=== PATIENT | female | born 1945 | race Caucasian/White ===

== ENCOUNTER 2021-10-03 08:55 | Outpatient (RCR) | payer MEDICARE, OTHER ==
[2021-10-02 10:08] VITALS: BP 133/45
[2021-10-02 10:16] LABS: BILIRUBIN,URINE NEGATIVE (NEGATIVE); CLARITY,URINE CLEAR; COLOR,URINE YELLOW; GLUCOSE, URINE (UA) NEGATIVE (NEGATIVE); KETONES,URINE NEGATIVE (NEGATIVE); LEUKOCYTE ESTERASE ,URINE NEGATIVE (NEGATIVE); NITRITE,URINE NEGATIVE (NEGATIVE); PROTEIN,URINE NEGATIVE (NEGATIVE)
[2021-10-02 10:29] LABS: AMORPHOUS SEDIMENT,UR FEW AMOR URATES /LPF; BACTERIA,URINE NEGATIVE /HPF; HYALINE CASTS, URINE RARE /LPF; RBC,URINE 0-2 /HPF; RENAL EPITHELIAL CELLS,URINE 0-2 /HPF; SQUAMOUS EPITHELIAL CELL,UR 0-2 /HPF; WBC,URINE 0-2 /HPF
[2021-10-02 11:08] LABS: BASOPHILS % (AUTO) 1 % (0-10); EOSINOPHILS # (AUTO) 0.1 10^3/uL (0.0-0.3); EOSINOPHILS % (AUTO) 3 % (0-10); HEMATOCRIT 38 % (35-52); LYMPHOCYTES # (AUTO) 1.2 10^3/uL (1.0-4.0); LYMPHOCYTES % (AUTO) 29 % (12-44); MEAN CORPUSCULAR HEMOGLOBIN 31 pg (25-34); MEAN CORPUSCULAR HGB CONC 34 g/dL (32-36); MEAN CORPUSCULAR VOLUME 93 fL (80-99); MEAN PLATELET VOLUME 11.6 fL (9.0-12.2); MONOCYTES # (AUTO) 0.4 10^3/uL (0.0-1.0); MONOCYTES % (AUTO) 9 % (0-12); NEUTROPHILS # (AUTO) 2.4 10^3/uL (1.8-7.8); NEUTROPHILS % (AUTO) 58 % (42-75); PLATELET COUNT 222 10^3/uL (130-400); WHITE BLOOD COUNT 4.1 10^3/uL (4.3-11.0)
[2021-10-02 11:14] LABS: PROTHROMBIN TIME PATIENT 13.4 SEC (12.2-14.7)
[2021-10-02 11:16] LABS: ALBUMIN 4.3 GM/DL (3.2-4.5); BILIRUBIN,TOTAL 0.8 MG/DL (0.1-1.0); CALCIUM 9.6 MG/DL (8.5-10.1); CREATININE SERUM 1.08 MG/DL (0.60-1.30); POTASSIUM 3.7 MMOL/L (3.6-5.0); TOTAL PROTEIN 7.2 GM/DL (6.4-8.2)
[2021-10-02 11:46] LABS: ERYTHROCYTE SEDIMENTATION RATE 22 MM/HR (0-30)
[~2021-10-03] VITALS: Ht 154.9 cm; Wt 58.6 kg
--- NOTE | 2021-10-03 11:37 | Diagnostic Imaging Report ---
INDICATION: Preoperative total knee replacement surgery. Time of Exam: 11:13 AM No prior studies are available for comparison. Findings: The heart size is normal. The pulmonary vascularity is unremarkable. The lungs are clear. No infiltrate, effusion or pneumothorax is detected. Impression: No acute cardiopulmonary process is detected. Dictated by: Dictated on workstation # [id number]
== END 2021-10-16 | disposition home or self-care (01) ==
LOC: PREOP 08:55
PROVIDERS: ATTEND Orthopaedic Surgery
DX: Z01.818 Encounter for other preprocedural examination (principal); M17.12 Unilateral primary osteoarthritis, left knee
CPT/HCPCS: 36415; 71046; 80053; 81000; 82308; 85025; 85610; 85652; 86850; 86900; 86901; 87081; 93005

== ENCOUNTER → 2021-10-03 | Outpatient (CLI) | payer MEDICARE, OTHER ==
[~2021-10-03] MED LIST: ASPI81TA16 PO; ATEN50TA PO; CLOR3.755 PO; HYDR12.56 PO; LISI20TA26 PO; PRAV40TA2 PO
== END ==
LOC: RAD 10:56
PROVIDERS: ATTEND Orthopaedic Surgery
DX: M17.12 Unilateral primary osteoarthritis, left knee (principal); R53.83 Other fatigue

== ENCOUNTER 2021-10-08 08:00 | Inpatient (IN) | payer MEDICARE, OTHER ==
--- NOTE | 2021-10-02 07:39 | HISTORY AND PHYSICAL ---
DATE OF SERVICE: This will be for inpatient admission on 10/08/2021 for left total knee arthroplasty. The patient will require regular inpatient admission due to gait abnormalities, need for physical therapy and pain management. HISTORY OF PRESENT ILLNESS: The patient is a 76-year-old female with complaints of progressively worsening left knee pain. She has had longstanding pain. She has undergone treatment with hyaluronic acid injections as well as ____ injections. These, however, have ceased providing relief. She reports activity limitations because of the knee. Due to functional impairment and failure to improve with conservative measures, the patient elected to proceed with surgical intervention. REVIEW OF SYSTEMS: No chest pain, no shortness of breath, no dysuria. PAST MEDICAL HISTORY: Hypertension and vertigo. PAST SURGICAL HISTORY: Appendectomy, right total knee arthroplasty and tubal ligation. FAMILY HISTORY: Significant for thyroid disorder, arthritis, coronary artery disease. PRIMARY CARE PROVIDER: Dr. Vega. MEDICATIONS: Lisinopril, hydrochlorothiazide, pravastatin, aspirin, atenolol. ALLERGIES: NO KNOWN DRUG ALLERGIES. SOCIAL HISTORY: The patient denies alcohol, tobacco use. RADIOGRAPHS: Reveal severe medial and patellofemoral joint space narrowing with complete loss of joint space. In addition, there is an osteochondral defect of the medial femoral condyle with ____ in the medial femoral condyle. PHYSICAL EXAMINATION: GENERAL: The patient is a well-developed, well-nourished, in no acute distress. HEENT: Normocephalic, atraumatic. Pupils are equal, round, reactive lateral. Oropharynx is clear. NECK: Supple, no lymphadenopathy. LUNGS: Clear to auscultation bilaterally. HEART: Regular rate and rhythm. ABDOMEN: Soft, nontender, nondistended. EXTREMITIES: The left lower extremity demonstrates varus alignment. No skin lesions are noted. She has a slight effusion. There is no erythema or warmth. She is tender along her medial femoral condyle. Her active range of motion is well maintained at 0/0/130. There is no varus valgus laxity and negative anterior and posterior drawer. The patient ambulates with an antalgic gait. IMPRESSION: Severe left knee osteoarthritis, unresponsive to conservative measures. PLAN: Left total knee arthroplasty. The risks, benefits, options, ramifications and recovery have been discussed at length with the patient. She understands and wishes to proceed. Job ID: [id number] DocumentID: [id number] Dictated Date: 09/22/2021 16:15:12 Fastener Technologist Date: 09/22/2021 17:39:52 Dictated By: JOSE CALLEJAS MD
[~2021-10-08] VITALS: Ht 155 cm; Wt 58.6 kg
[2021-10-08] VITALS (10 sets, daily range): BP systolic 105–145; BP diastolic 51–68
[~2021-10-08 08:00] MED LIST changes: +NALOXONE 0.4 MG/ML 1 ML (NARCAN) VIAL IV PRN; +diphenhydrAMINE 50 MG/ML INJ (BENADRYL) IVP PRN; +morphine PCA 100 MG/100 ML BAG IV PRN
[2021-10-08] MEDS ORDERED: INTRA-ARTICULAR IU ONE ×5 (08:30)
[2021-10-08] MEDS ORDERED: CEFUROXIME INJECTION 1,500 MG in NS (IVPB) 50 ML IV ONE (08:30)
[2021-10-08] MEDS: LACTATED RINGERS 1,000 ML IV PRN ×2 (08:45→11:11)
[2021-10-08] MEDS ORDERED: MIDAZOLAM 2 MG/2 ML (VERSED) VIAL ONE (08:54)
[2021-10-08] MEDS ORDERED: ONDANSETRON 4 MG/2 ML (SDV) Z0FRAN IVP ONE (09:00)
[2021-10-08] MEDS ORDERED: FAMOTIDINE 20MG/2ML IV (PEPCID) IVP ONE (09:00)
--- NOTE | 2021-10-08 09:11 | Progress Note-Pre Operative ---
Pre-Operative Progress Note H&P Reviewed The H&P was reviewed, patient examined and no changes noted. Date Seen by Provider: Oct 08, 2021 Time Seen by Provider: 09:06 Date H&P Reviewed: Oct 08, 2021 Time H&P Reviewed: 07:11 Pre-Operative Diagnosis: left knee primary osteoarthitis JOSE CALLEJAS MD Oct 08, 2021 09:11
--- NOTE | 2021-10-08 09:12 | Progress Note-Post Operative ---
Post-Operative Progess Note Surgeon (s)/Cook Fish Eggs (s) Surgeon JOSE CALLEJAS MD Cook Fish Eggs: Caesar Celis Pre-Operative Diagnosis left knee primary osteoarthitis Post-Operative Diagnosis left knee primary osteoarthitis Procedure & Operative Findings Date of Procedure 10/08/21 Procedure Performed/Findings left total knee arthroplasty Anesthesia Type GETA Estimated Blood Loss Estimated blood loss (mL): minimal Specimens/Packing Specimens Removed none Packing: none JOSE CALLEJAS MD Oct 08, 2021 09:12
--- NOTE | 2021-10-08 09:14 | D/C HH Face to Face Order ---
D/C Face to Face Orders Reconcile Patient Problems Problems Reviewed?: Yes Instructions for Patient Via Marcie LeadiD, Patient Instructions/FollowUp: three weeks Physician to follow Patient: three weeks Discharge Diet for Home: Regular Diet Patient Data-Allergies,Ht & Wt Patient Allergies: Coded Allergies: pseudoephedrine (Unverified Allergy, Severe, 10/02/21) HEART RACING [facility] Need/Face to Face Date of Face to Face: Oct 08, 2021 Clinical Findings: Muscle weakness, Pain with ambulation, Unsteady gait I have seen Pt [id number]: Yes Discharged To: Home Diagnosis/Conditions: left total knee arthroplasty Patient is Homebound due to: Muscle weakness, Pain w/ambulation Homebound Status Due to the above stated illness, injury or surgical procedure (medical condition or diagnosis) and associated clinical findings, the patient is homebound because of his/her inability to leave home except with aid of a supportive device and/or person AND leaving the home requires a considerable and taxing effort or is medically contraindicated. Pt req the following assistanc: [facility] Nursing Orders Home Health Services Order: Physical Therapy-Evaluate & Treat DC left knee grecia and apply steri strips 10/22/21 Therapy Orders Therapy Orders: Physical Therapy, PT to assess for OT Therapy Specific Orders: Eval assistive deivces, Teach enviro modifications/safety, Gait training, Increase strength/endurance, Provider maintenance therapy, Restore ROM Certify Stmt I certify that this patient is under my care and that I, a nurse practitioner or a physician; a telecom assistant working with me, had a face to face encounter that - meets the physician face to face encounter requirements with this patient as dated. JOSE CALLEJAS MD Oct 08, 2021 09:14
[2021-10-08] MEDS ORDERED: ONDANSETRON 4 MG/2 ML (SDV) Z0FRAN ONE ×2 (09:15→10:13)
[2021-10-08] MEDS ORDERED: FAMOTIDINE 20MG/2ML IV (PEPCID) ONE (09:15)
[2021-10-08] MEDS ORDERED: fentaNYL INJ 100 MCG/2 ML AMP ONE (09:44)
[2021-10-08] MEDS ORDERED: proPOfol 200 MG/20 ML (DIPRIVAN) VIAL IV ONE (10:13)
[2021-10-08] MEDS ORDERED: LIDOCAINE PF 2% 5 ML (XYLOCAINE) VIAL ONE (10:13)
[2021-10-08] MEDS ORDERED: TRANEXAMIC ACID 100 MG/ML 10 ML INJECTION ONE (10:13)
[2021-10-08] MEDS ORDERED: SEVOFLURANE (ULTANE) 15 ML INHAL SOLN ONE (11:15)
[2021-10-08] MEDS ORDERED: ROPIVACAINE 5MG/ML 30ML VIAL ONE (11:19)
[2021-10-08] MEDS ORDERED: morphine INJ 10 MG/ML 1ML (SYR OR VIAL) ONE (11:39)
[2021-10-08] MEDS ORDERED: PROMETHAZINE INJ 25 MG/ML (PHENERGAN) AMP IVP ONE (11:45)
[2021-10-08] MEDS ORDERED: morphine INJ 10 MG/ML 1ML (SYR OR VIAL) IVP ONE (11:45)
[2021-10-08] MEDS ORDERED: HYDROmorphone 2 MG/ML VIAL (DILAUDID) IV ONE (11:45)
[2021-10-08] MEDS ORDERED: ONDANSETRON 4 MG/2 ML (SDV) Z0FRAN IVP PRN (11:45)
--- NOTE | 2021-10-08 12:04 | Progress Note ---
Standard Progress Note Progress Notes/Assess & Plan Date Seen by a Provider: Oct 08, 2021 Time Seen by a Provider: 12:03 Progress/Assessment & Plan post op check no complaints radiographs--HW well positioned without fracture LLE--2 plus DP pulse with brisk cap refill intact DF and PF of toes and ankle sensation intact to light touch throughouot s/p LTKA mobilize as able JOSE CALLEJAS MD Oct 08, 2021 12:04
--- NOTE | 2021-10-08 12:34 | Diagnostic Imaging Report ---
INDICATION: Postop knee replacement. COMPARISON: None. FINDINGS: Two views of the left knee were obtained. Expected postoperative changes are seen from left knee total arthroplasty. Femoral and tibial components appear well-seated. There is no evidence of periprosthetic fracture. No unexpected radiopaque foreign bodies are identified. IMPRESSION: Expected postsurgical changes from left knee total arthroplasty, as described above. No unexpected radiopaque foreign bodies. Dictated by: Dictated on workstation # [id number]
[2021-10-08] MEDS: NS IV 1000 ML 1,000 ML IV SCH ×2 (14:50→22:41)
[2021-10-08] MEDS: SENNA W/DOCUSATE (SENOKOT S) TABLET PO SCH ×3 (15:06→22:33)
[2021-10-08] MEDS: ONDANSETRON 4 MG/2 ML (SDV) Z0FRAN IVP PRN (15:08)
--- NOTE | 2021-10-08 15:48 | Physical Therapy Evaluation ---
PT Evaluation-General Medical Diagnosis Admission Date Oct 08, 2021 at 08:00 Medical Diagnosis: Left TKA Onset Date: Oct 08, 2021 Therapy Diagnosis Therapy Diagnosis: Gait deficit, strength deficit Precautions Precautions/Isolations: Fall Prevention, Standard Precautions Weight Bear Status Right Lower Extremity: Right Full Weight Bearing Left Lower Extremity: Left Weight Bearing/Tolerated Referral Physician: Dr. Abdi Reason for Referral: Evaluation/Treatment Medical History Reviewed History: Yes Social History Home: Multilevel Current Living Status: Spouse Entry Into Home: Level Entry PT Steps Into Home: 0 PT Steps Inside Home: 13 Prior Prior Level of Function SCALE: Activities may be completed with or without assistive devices. 3-Cpipddhfjq-jfjzmzg completes the activity by him/herself with no assistance from a helper. 5-Set-up or Clean-up Assistance-helper sets up or cleans up; patient completes activity. [place] assists only prior to or following the activity. 4-Supervision or Touching Assistance-helper provides verbal cues and/or touching/steadying and/or contact guard assistance as patient completes activity. Assistance may be provided throughout the activity or intermittently. 3-Partial/Moderate Assistance-helper does LESS THAN HALF the effort. [place] lifts, holds or supports trunk or limbs, but provides less than half the effort. 2-Substantial/Maximal Assistance-helper does MORE THAN HALF the effort. [place] lifts or holds trunk or limbs and provides more than half the effort. 5-Ytrmcwvde-ajhtap does ALL the effort. Patient does none of the effort to complete the activity. Or, the assistance of 2 or more helpers is required for the patient to complete the activity. If activity was not attempted, code reason: 7-Patient Refused. 9-Not Applicable-not attempted and the patient did not perform the activity before the current illness, exacerbation or injury. 10-Not Attempted due to Environmental Limitations-(lack of equipment, weather restraints, etc.). 88-Not Attempted due to Medical Conditions or Safety Concerns. Bed Mobility: 6 Transfers (B,C,W/C): 6 Gait: 6 Stairs: 6 Indoor Mobility (Ambulation): Independent Stairs: Independent Prior Devices Use: None PT Evaluation-Current Subjective Patient lying supine in bed upon PT arrival, agreeable to treatment. Patient rates pain at 2/10 currently. Objective Patient Orientation: Person, Place, Time, Situation ROM/Strength ROM Lower Extremities Right LE WFLs all planes; Left knee flexion 95 degrees in sitting, extension lacks 15 degrees in supine Strength Lower Extremities Right LE 4/5 all planes; Left knee flexion 3/5, extension 2/5. Sensory Sensation Right Lower Extremit: Intact Sensation Left Lower Extremity: Intact Transfers Roll Left to Right (QC): 4 Sit to Lying (QC): 4 Lying to Sitting/Side of Bed(Q: 4 Sit to Stand (QC): 2 Chair/Ryx-tg-Xtmbv Xfer(QC): 2 Gait Does the Patient Walk?: Yes Mode of Locomotion: Walk Anticipated Mode of Locomotion: Walk Walk 10 feet (QC): 2 Distance: 3 Gait Assistive Device: FWW Comments/Gait Description Patient unable to bear weight through the left LE during stance phase. Balance Sitting Static: Good Sitting Dynamic: Good Standing Static: Fair Standing Dynamic: Poor Assessment/Needs Patient tolerated treatment fair. Performs all bed mobility with SBA and transfers with max A. Attempts to ambulate with FWW, however patient unable to bear weight through left LE. She ambulates 3 feet with FWW with max A and verbal cues for posture, use of FWW and safety. Patient in chair post treatment with all needs met, nursing notified, call light in reach and friend in the room. Rehab Potential: Good PT Intermediate Goals Intermediate Goals PT Intermediate Goals Time Frame: Oct 16, 2021 Roll Left & Right (QC): 6 Lying-Sitting on Side/Bed(QC): 6 Sit to Stand (QC): 5 Chair/Eby-am-Xaiyc Xfer(QC): 5 Toilet Transfer (QC): 5 Does the Patient Walk: Yes Walk 10 feet (QC): 4 Walk 50ft with 2 Turns (QC): 4 Walk 150 ft (QC): 4 1 Step (curb) (QC): 3 4 Steps (QC): 3 12 Steps (QC): 3 PT Plan Problem List Problem List: Activity Tolerance, Functional Strength, Safety, Balance, Gait, Transfer, Bed Mobility, ROM Treatment/Plan Treatment Plan: Continue Plan of Care Treatment Plan: Bed Mobility, Education, Functional Activity Chidi, Functional Strength, Group Therapy, Gait, Safety, Therapeutic Exercise, Transfers Treatment Duration: Nov 14, 2021 Frequency: 11 times per week Estimated Hrs Per Day: .25 hour per day Patient and/or Family Agrees t: Yes Safety Risks/Education Patient Education: Gait Training, Transfer Techniques Teaching Recipient: Patient Teaching Methods: Demonstration, Discussion Response to Teaching: Verbalize Understanding, Reinforcement Needed Time/GCodes Time In: 1357 Time Out: 1415 Total Billed Treatment Time: 18 Total Billed Treatment Visit, LEXI JURADO PT Oct 08, 2021 15:48
--- NOTE | 2021-10-08 16:01 | Consultation ---
HPI History of Present Illness: 76 yo female admitted after left TKA, feeling okay other than nauseated since anesthesia. Source: patient Date seen by provider: Oct 08, 2021 Time Seen by Provider: 15:57 Attending Physician Jacinto Vega MD PCP Admitting Physician: Aleks Abdi MD Attending Physician: Aleks Abdi MD Consult Date of Admission Oct 08, 2021 at 08:00 Home Medications Home Medications Reviewed patient Home Medication Reconciliation performed by pharmacy medication reconciliations tire and lube technician and/or nursing. Patients Allergies have been reviewed. Allergies Coded Allergies: pseudoephedrine (Unverified Allergy, Severe, 10/02/21) HEART RACING QOK-Hbcfgg-Bmxwxe Hx Patient Social History Smoking Status: Never a Smoker Recent Hopitalizations: No Alcohol Use?: No Immunizations Up To Date First/Initial COVID19 Vaccinat: May 29, 2020 Second COVID19 Vaccination Herbie: June 28, 2020 Third COVID19 Vaccination Date: Feb 18, 2021 Past Medical History PMHx: HTN HLD SurgHx: Appendectomy Tubal ligation Hammer toe Right knee replacement Left knee replacement Family Medical History Significant Family History: Heart Disease, Cancer (brother age 67, colon cancer; sister with multiple types of cancer), Diabetes Review of Systems ([facility]) Constitutional: dizziness (postop) EENTM: No blurred vision Respiratory: No cough Cardiovascular: No chest pain Gastrointestinal: No constipation, No diarrhea; nausea (postop) Genitourinary: No dysuria Musculoskeletal: joint pain Skin: No rash Psychiatric/Neurological: Denies Headache Physical Exam-([facility]) Physical Exam Vital Signs VS - Last 72 Hours, by Label 10/08/21 10/08/21 10/08/21 10/08/21 08:00 11:10 11:10 11:20 Temp 36.4 36.4 Pulse 59 Resp 18 16 12 B/P (MAP) 117/62 (80) 105/51 (69) 139/68 (91) Pulse Ox 99 96 95 O2 Delivery Room Air OxyMask OxyMask OxyMask O2 Flow Rate 7 7 7 10/08/21 10/08/21 10/08/21 10/08/21 11:25 11:30 11:40 11:40 Resp 16 20 B/P (MAP) 130/63 (85) 120/65 (83) Pulse Ox 99 98 O2 Delivery OxyMask OxyMask OxyMask OxyMask O2 Flow Rate 7 7 1 1 10/08/21 10/08/21 10/08/21 10/08/21 11:50 11:50 12:00 12:00 Temp 36.5 Resp 16 10 B/P (MAP) 129/61 (83) 124/66 (85) Pulse Ox 96 99 O2 Delivery Room Air OxyMask Room Air Room Air O2 Flow Rate 1 Capillary Refill : Less Than 3 Seconds General Appearance: WD/WN, no apparent distress Respiratory: lungs clear, normal breath sounds Cardiovascular: regular rate, rhythm, no murmur Gastrointestinal: non tender, soft, other (hypoactive bowel sounds) Neurologic/Psychiatric: alert, normal mood/affect Skin: warm/dry Assessment/Plan Assessment/Plan (1) S/P knee replacement Status: Acute Qualifiers: Qualified Codes: Z96.652 - Presence of left artificial knee joint (2) Hypertension Status: Chronic Assessment & Plan: Resume home medications (3) Hyperlipidemia Status: Chronic Assessment & Plan: Resume home VAL Lugo MD Oct 08, 2021 16:01
[2021-10-08] MEDS ORDERED: CLORAZEPATE DIPOTASSIUM 3.75 MG PO SCH (16:15)
[2021-10-08] MEDS: CEFUROXIME INJECTION 750 MG in NS (IVPB) 50 ML IV SCH (17:11)
[2021-10-08] MEDS: ATENOLOL 25 MG (TENORMIN) TAB PO SCH (20:51)
[2021-10-08] MEDS: AtorvaSTATin TABLET 10 MG TABLET PO SCH ×2 (20:51→22:33)
--- NOTE | 2021-10-08 20:51 | OPERATIVE REPORT ---
DATE OF SERVICE: 10/08/2021 PREOPERATIVE DIAGNOSIS: Left knee primary osteoarthritis. POSTOPERATIVE DIAGNOSIS: Left knee primary osteoarthritis. PROCEDURE: Left total knee arthroplasty. SURGEON: Aleks Callejas MD ARCHITECTURAL MANAGER: Caesar Celis, who assisted throughout the procedure and closed the incision. ANESTHESIA: General endotracheal by Vani Garza CRNA. TOURNIQUET TIME: Approximately 75 minutes at 300 mmHg. ESTIMATED BLOOD LOSS: Minimal. DRAINS: None. COMPLICATIONS: None. POSTOPERATIVE PLAN: Routine protocol. The patient was transferred to recovery room awake and in stable condition. MATERIALS: Microport cemented size 3 femur, cemented size 3 tibia with 14 mm insert and cemented size 29 patellar button. STATEMENT OF MEDICAL NECESSITY: The patient is a 76-year-old female with longstanding progressive left knee pain. Radiographs revealed severe tricompartmental osteoarthritis. She has undergone treatment with injections, anti-inflammatories and rest without relief. Due to functional impairment and failure to improve with conservative measures, the patient elected to proceed with surgical intervention. DESCRIPTION OF PROCEDURE: After risks and benefits of procedure were discussed and questions were answered, an informed consent was signed and placed on chart. The operative site was confirmed in the preoperative holding area initialed by the surgeon. The patient was then transferred to the operating room and after adequate levels of general endotracheal anesthetic were obtained, a timeout was called, confirming the operative site. The left lower extremity was prepped and draped in the usual sterile fashion. With the leg elevated and the knee flexed, tourniquet was inflated to 300 mmHg. Standard anterior approach was utilized. Hemostasis was obtained with cautery. A medial parapatellar arthrotomy was performed leaving 1 cm cuff on the patella for later reattachment. A portion of the fat pad was resected. A subperiosteal release was performed in the proximal medial tibia being careful to stay on the bony surface. The ACL was resected. Intramedullary guide was passed into the femoral canal. The distal cutting block was placed. Distal cut was made. Femur sized to a size 3. The 3 cutting block was placed parallel to the epicondylar axis and cuts were made from posterior to anterior. Subperiosteal release was then carefully performed on posterior distal femur, being careful to stay on the bony surface. The intramedullary guide was passed into the tibial canal. The cutting block was placed. Drop jessica transected the intermalleolar axis and the cut was made. The 3 trial was placed. The drop jessica transected the intermalleolar axis. The femoral trial was placed. The trochlear cut was made. The patella was then prepared by resecting 10 mm off the undersurface using the freehand technique. The peg guide was placed, and peg holes were drilled. The 29 button was placed. The knee was taken through range of motion. Full extension was easily obtained under 20 degrees of flexion with gravity was easily obtained. There was no anterior/posterior or medial/lateral laxity in flexion or extension with a 14 mm insert. The trials were removed. The bony surfaces and joint were irrigated with pulse lavage. The periarticular block was placed in the posterior capsule, medial and lateral retinaculum extensor mechanism, subcutaneous tissues. Bone ends were irrigated and dried. The tibial baseplate was cemented into position. Excessive cement was removed. The superior surface was irrigated and dried and the polyethylene insert was placed. The distal femur was irrigated and dried and the femoral prosthesis was cemented into position. Excessive cement was removed. The knee was brought out in full extension until cement had cured. The undersurface of patella was irrigated and dried. The patellar button was cemented into position. Excessive cement was removed. Once the cement had cured, the knee was taken through range of motion. Full extension was easily obtained under 20 degrees of flexion with gravity was easily obtained. The patella tracked well. There was no anterior/posterior or medial/lateral laxity in flexion or extension. The joint was further irrigated with pulse lavage. The arthrotomy was closed with #2 Tevdek in cldrlj-jn-ucglh interrupted fashion. The knee was then flexed. Repair was stable. Patella tracked well. Subcutaneous tissues were irrigated using a total of 6 liters throughout the procedure. A 0 Vicryl was used to deep subcutaneous layer, 2-0 Vicryl for the superficial subcutaneous layer, grecia used on the skin. A soft dressing was applied. The tourniquet was deflated, and the patient was transferred to the recovery room awake and in stable condition. Job ID: [id number] DocumentID: [id number] Dictated Date: 10/08/2021 11:17:24 Pesticide Applicator Date: 10/08/2021 20:51:07 Dictated By: ALEKS CALLEJAS MD
[2021-10-08] MEDS ORDERED: NON-FORMULARY MEDICATION 1 EA EA (Pravastatin Sodium 40 MG) PO SCH (21:00)
[2021-10-08] MEDS ORDERED: NON-FORMULARY MEDICATION 1 EA EA (Atenolol 50 MG) PO SCH (21:00)
[2021-10-08] MEDS ORDERED: CLORAZEPATE 7.5 MG (TRANXENE) TAB PO PRN (22:15)
[2021-10-09] MEDS: CEFUROXIME INJECTION 750 MG in NS (IVPB) 50 ML IV SCH (00:22)
[2021-10-09 04:10] VITALS: BP 134/63
[2021-10-09] MEDS: NS IV 1000 ML 1,000 ML IV SCH ×2 (04:23→16:41)
[2021-10-09 06:12] LABS: HEMOGLOBIN 11.4 g/dL (11.5-16.0)
[2021-10-09] MEDS: MULTIVIT W/MINERALS TAB (THERAGRAN M) PO SCH (06:54)
--- NOTE | 2021-10-09 07:24 | Anesthesia-General Post-Op ---
General Patient Condition Mental Status/LOC: Same as Preop Cardiovascular: Satisfactory Nausea/Vomiting: Absent Respiratory: Satisfactory Pain: Controlled Complications: Absent Post Op Complications Complications None Follow Up Care/Instructions Patient Instructions None needed. Anesthesia/Patient Condition Patient Condition Patient is doing well, no complaints, stable vital signs, no apparent adverse anesthesia problems. No complications reported per nursing. D/C home per [facility] [place] Criteria: Yes NEELA DALY CRNA Oct 09, 2021 07:24
--- NOTE | 2021-10-09 07:41 | Progress Note ---
Standard Progress Note Progress Notes/Assess & Plan Date Seen by a Provider: Oct 09, 2021 Time Seen by a Provider: 07:40 Progress/Assessment & Plan post op check no complaints radiographs--HW well positioned without fracture LLE--2 plus DP pulse with brisk cap refill intact DF and PF of toes and ankle sensation intact to light touch throughouot s/p LTKA mobilize as able Final Diagnosis no complaints Vital Signs Date Time Temp Pulse Resp B/P (MAP) Pulse Ox O2 Delivery O2 Flow Rate FiO2 10/09/21 04:10 37.0 64 14 134/63 (86) 97 Room Air 10/08/21 23:50 36.8 67 16 145/66 (92) 96 Room Air 10/08/21 20:55 Room Air 10/08/21 20:00 35.8 62 18 136/65 (88) 93 Room Air 10/08/21 16:00 36.0 55 18 135/60 (85) 96 Room Air 10/08/21 12:30 Room Air 10/08/21 12:00 Room Air 10/08/21 12:00 36.5 10 124/66 (85) 99 Room Air 10/08/21 11:50 16 129/61 (83) 96 OxyMask 1 10/08/21 11:50 Room Air 10/08/21 11:40 OxyMask 1 10/08/21 11:40 20 120/65 (83) 98 OxyMask 1 10/08/21 11:30 16 130/63 (85) 99 OxyMask 7 10/08/21 11:25 OxyMask 7 10/08/21 11:20 12 139/68 (91) 95 OxyMask 7 10/08/21 11:10 36.4 16 105/51 (69) 96 OxyMask 7 10/08/21 11:10 OxyMask 7 10/08/21 08:00 36.4 59 18 117/62 (80) 99 Room Air I & O 10/09/21 06:59 Intake Total 2175 ml Output Total 850 ml Balance 1325 ml Laboratory Tests Test 10/09/21 05:13 Range/Units Hemoglobin 11.4 L 11.5-16.0 g/dL Hematocrit 35 35-52 % LLE--dressing intact. Able to perform SLR no calf tenderness s/p LTKA PT/OT JOSE CALLEJAS MD Oct 09, 2021 07:41
[2021-10-09 07:54] VITALS: BP 103/57
[2021-10-09] MEDS: ONDANSETRON 4 MG/2 ML (SDV) Z0FRAN IVP PRN (08:09)
[2021-10-09] MEDS: ENOXAPARIN INJECTION 30 MG/0.3 ML SYR SC SCH ×2 (08:09→20:40)
[2021-10-09] MEDS: SENNA W/DOCUSATE (SENOKOT S) TABLET PO SCH ×2 (08:11→20:40)
[2021-10-09] MEDS: ASPIRIN E.C. 81 MG (ECOTRIN) TAB PO SCH (08:11)
[2021-10-09] MEDS: oxyCODONE/APAP 5/325MG (PERCOCET 5) TABLET PO PRN ×4 (08:12→23:54)
[2021-10-09] MEDS: lisINopril 20 MG (PRINIVIL) TABLET PO SCH (08:12)
--- NOTE | 2021-10-09 10:14 | Physical Therapy Daily Note ---
PT Daily Note-Current Subjective Patient agrees to PT. Pain Numeric Pain Scale: 5-Moderate Pain Location: Left Location Body Site: Knee Pain Description: Acute Mental Status Patient Orientation: Normal For Age Attachments: IV Transfers SCALE: Activities may be completed with or without assistive devices. 3-Izwfeipzqt-ijpabzz completes the activity by him/herself with no assistance from a helper. 5-Set-up or Clean-up Assistance-helper sets up or cleans up; patient completes activity. [place] assists only prior to or following the activity. 4-Supervision or Touching Assistance-helper provides verbal cues and/or touching/steadying and/or contact guard assistance as patient completes activity. Assistance may be provided throughout the activity or intermittently. 3-Partial/Moderate Assistance-helper does LESS THAN HALF the effort. [place] lifts, holds or supports trunk or limbs, but provides less than half the effort. 2-Substantial/Maximal Assistance-helper does MORE THAN HALF the effort. [place] lifts or holds trunk or limbs and provides more than half the effort. 4-Mgusdoihh-pmgbcq does ALL the effort. Patient does none of the effort to complete the activity. Or, the assistance of 2 or more helpers is required for the patient to complete the activity. If activity was not attempted, code reason: 7-Patient Refused. 9-Not Applicable-not attempted and the patient did not perform the activity before the current illness, exacerbation or injury. 10-Not Attempted due to Environmental Limitations-(lack of equipment, weather restraints, etc.). 88-Not Attempted due to Medical Conditions or Safety Concerns. Sit to Stand (QC): 4 Weight Bearing Right Lower Extremity: Right Full Weight Bearing Left Lower Extremity: Left Weight Bearing/Tolerated Gait Training Distance: 200' Walk 10 feet (QC): 4 Walk 50 ft with 2 Turns(QC): 4 Walk 150 ft (QC): 4 Gait Assistive Device: FWW slow, antalgic, functional gait sequence Exercises Supine Ex: Ankle pumps, Quad Set, Heel Slides, Straight leg raise Supine Reps: 15 (with bilateral LE elevated in recliner) Seated Therapy Exercises: Long arc quads Seated Reps: 15 Assessment Current Status: Excellent Progress Patient progressing with treatment plan. Patient ROM left knee flexion 80 degrees flexion with 0 degrees extension. Increase activity as tolerated by patient. Plan dismissal tomorrow PT Shelter Goals Shelter Goals PT Chemical Production Engineer Goals Time Frame: Oct 16, 2021 Roll Left & Right (QC): 6 Lying-Sitting on Side/Bed(QC): 6 Sit to Stand (QC): 5 Chair/Cxn-lx-Qcjfa Xfer(QC): 5 Toilet Transfer (QC): 5 Does the Patient Walk: Yes Walk 10 feet (QC): 4 Walk 50ft with 2 Turns (QC): 4 Walk 150 ft (QC): 4 1 Step (curb) (QC): 3 4 Steps (QC): 3 12 Steps (QC): 3 PT Plan Treatment/Plan Treatment Plan: Continue Plan of Care Treatment Plan: Bed Mobility, Education, Functional Activity Chidi, Functional Strength, Group Therapy, Gait, Safety, Therapeutic Exercise, Transfers Treatment Duration: Nov 14, 2021 Frequency: 11 times per week Estimated Hrs Per Day: .25 hour per day Patient and/or Family Agrees t: Yes Time/GCodes Time In: 915 Time Out: 938 Total Billed Treatment Time: 23 Total Billed Treatment 1 visit EX 15 min GT 8 min MORIS BARRY PT Oct 09, 2021 10:14
--- NOTE | 2021-10-09 11:01 | Occupational Therapy Eval ---
OT Evaluation-General/PLF Medical Diagnosis Admission Date Oct 08, 2021 at 08:00 Medical Diagnosis: Left TKA Onset Date: Oct 08, 2021 Therapy Diagnosis Therapy Diagnosis: decreased ADL status Precautions Precautions/Isolations: Fall Prevention, Standard Precautions Referral Physician: Dr. Abdi Referral Reason: Evaluation/Treatment Medical History Additional Medical History HTN, vertigo, and elected R TKA in 2014 Current History Elective L TKA on 10/08/2021 Social History Home: Multilevel Current Living Status: Spouse Entry Into Home: Level Entry Steps Into Home: 0 Steps Inside Home: 13 ADL-Prior Level of Function SCALE: Activities may be completed with or without assistive devices. 4-Egefvpoira-mnzwonl completes the activity by him/herself with no assistance from a helper. 5-Set-up or Clean-up Assistance-helper sets up or cleans up; patient completes activity. [place] assists only prior to or following the activity. 4-Supervision or Touching Assistance-helper provides verbal cues and/or touching/steadying and/or contact guard assistance as patient completes activity. Assistance may be provided throughout the activity or intermittently. 3-Partial/Moderate Assistance-helper does LESS THAN HALF the effort. [place] lifts, holds or supports trunk or limbs, but provides less than half the effort. 2-Substantial/Maximal Assistance-helper does MORE THAN HALF the effort. [place] lifts or holds trunk or limbs and provides more than half the effort. 4-Gzixdllha-ddcrbw does ALL the effort. Patient does none of the effort to complete the activity. Or, the assistance of 2 or more helpers is required for the patient to complete the activity. If activity was not attempted, code reason: 7-Patient Refused. 9-Not Applicable-not attempted and the patient did not perform the activity before the current illness, exacerbation or injury. 10-Not Attempted due to Environmental Limitations-(lack of equipment, weather restraints, etc.). 88-Not Attempted due to Medical Conditions or Safety Concerns. ADL PLOF Comments Pt reports being IND with all ADLs and IADLs at [facility]. She lives at home with her , who she is a swimming pool maintenance for. Everything she needs is on the 2nd level except for the washer/dryer which is on the main level. She does not have an adequate bathroom/bedroom on main level, so her only option is to be able to go up the stairs to her usual bedroom. She said her grandson is living with them for 2 more weeks, so he can help with the laundry until she gets better, and her sisters live ~30-40minutes away and can help PRN. She had a R TKA in 2014, so she says she knows what the recovery process will look like. Self Care: Independent Functional Cognition: Independent DME/Equipment: Bath Chair, Tub, Toilet/Riser OT Current Status Subjective Pt reclining in chair upon OT arrival. Pt agreeable to OT eval/tx. She rates her pain as 3/10 d/t increased mobility with PT. Pt c/o nausea and assumes the cause is from the medication. Mental Status/Objective Patient Orientation: Person, Place, Time, Situation Attachments: IV Current Upper Extremity ROM WFL ADL-Treatment Eating (QC): 6 On/Off Footwear (QC): 6 Toileting Hygiene (QC): 6 (Per pt report.) Other Treatments Pt reclining in chair upon OT arrival. Pt provided information about PLOF and living environment. She independently donned/doffed gripper socks, and she is IND with eating per nursing report and self report. Pt was educated on the purpose of OT services, but she does not have any concerns with ADLs upon discharge. Pt left in recliner with polar pack on, call light in reach, and all needs met. Education OT Patient Education: Correct positioning, Disease process, Energy conservation, Instructions to caregiver, Modified ADL techniques, Progress toward Goal/Update tx plan, Purpose of tx/functional activities, Rehab process, Safety issues Teaching Recipient: Patient, Family (Sister) Teaching Methods: Discussion Response to Teaching: Verbalize Understanding OT Shell Mold Bonding Machine Operator Goals Shell Mold Bonding Machine Operator Goals 1=Demonstrate adherence to instructed precautions during ADL tasks. 2=Patient will verbalize/demonstrate understanding of assistive devices/modifications for ADL. 3=Patient will improve strength/tolerance for activity to enable patient to perform ADL's. OT Education/Plan Problem List/Assessment Assessment: No Skilled OT Needs ID'd No skilled OT services indicated at this time, pt is currently independent with ADL and at PLOF. Pt also declines further OT services, as she doesn't feel like she needs any OT intervention. OT informed pt if concerns arise, nursing can place new orders for reevaluation. D/C from OT. Discharge Recommendations Plan/Recommendations: Discharge/Goals Met Treatment Plan/Plan of Care Patient would benefit from OT for education, treatment and training to promote independence in ADL's, mobility, safety and/or upper extremity function for ADL's. Plan of Care: ADL Retraining Treatment Duration: Oct 09, 2021 Frequency: 1 time per week (eval only) Estimated Hrs Per Day: .25 hour per day Rehab Potential: Good Time/GCodes Start Time: 10:29 Stop Time: 10:43 Total Time Billed (hr/min): 14 Billed Treatment Time 1, EVL (14') BRADLEY TAVARES OT Oct 09, 2021 11:01
[2021-10-09 11:38] VITALS: BP 120/56
--- NOTE | 2021-10-09 14:26 | Physical Therapy Daily Note ---
PT Daily Note-Current Subjective Pt in recliner upon arrival and agrees to PT. Pts family present. Pain Numeric Pain Scale: 7 Mental Status Patient Orientation: Person, Place, Time, Situation Attachments: IV Transfers SCALE: Activities may be completed with or without assistive devices. 0-Zgswygyzoc-yorkcjm completes the activity by him/herself with no assistance from a helper. 5-Set-up or Clean-up Assistance-helper sets up or cleans up; patient completes activity. [place] assists only prior to or following the activity. 4-Supervision or Touching Assistance-helper provides verbal cues and/or touching/steadying and/or contact guard assistance as patient completes activity. Assistance may be provided throughout the activity or intermittently. 3-Partial/Moderate Assistance-helper does LESS THAN HALF the effort. [place] lifts, holds or supports trunk or limbs, but provides less than half the effort. 2-Substantial/Maximal Assistance-helper does MORE THAN HALF the effort. [place] lifts or holds trunk or limbs and provides more than half the effort. 3-Ceumtpjoo-hatcjg does ALL the effort. Patient does none of the effort to complete the activity. Or, the assistance of 2 or more helpers is required for the patient to complete the activity. If activity was not attempted, code reason: 7-Patient Refused. 9-Not Applicable-not attempted and the patient did not perform the activity before the current illness, exacerbation or injury. 10-Not Attempted due to Environmental Limitations-(lack of equipment, weather restraints, etc.). 88-Not Attempted due to Medical Conditions or Safety Concerns. Sit to Stand (QC): 4 Weight Bearing Right Lower Extremity: Right Full Weight Bearing Left Lower Extremity: Left Weight Bearing/Tolerated Gait Training Does the Patient Walk?: Yes Distance: 200' Walk 10 feet (QC): 4 Walk 50 ft with 2 Turns(QC): 4 Walk 150 ft (QC): 4 Gait Persons Needed: 1 Gait Assistive Device: FWW Slow, antalgic. FWW irritates elbows/shoulders Exercises Supine Ex: Ankle pumps, Quad Set, Heel Slides, Straight leg raise Supine Reps: 15 Seated Therapy Exercises: Ankle pumps, Long arc quads Seated Reps: 15 Treatments Pt performs sit to stand TF and then requests to use BR and CHECKERING MACHINE ADJUSTER step out of room and family will assist. Then pt amb 200' in bull and back to room. Pt then TFs back to recliner. Pt then performs supine exs w/ legs propped up on leg rests. All needs met call light nearby and PT departs. Assessment Current Status: Good Progress Pt required AAROM on SLR and HS in order to perform correctly. Pt flexion approx. 80-90 degrees and 0 degrees ext. PT Shelter Goals Shelter Goals PT Shelter Goals Time Frame: Oct 16, 2021 Roll Left & Right (QC): 6 Lying-Sitting on Side/Bed(QC): 6 Sit to Stand (QC): 5 Chair/Zoa-wb-Aciwh Xfer(QC): 5 Toilet Transfer (QC): 5 Does the Patient Walk: Yes Walk 10 feet (QC): 4 Walk 50ft with 2 Turns (QC): 4 Walk 150 ft (QC): 4 1 Step (curb) (QC): 3 4 Steps (QC): 3 12 Steps (QC): 3 PT Plan Problem List Problem List: Activity Tolerance, Functional Strength Treatment/Plan Treatment Plan: Continue Plan of Care Treatment Plan: Bed Mobility, Education, Functional Activity Chidi, Functional Strength, Group Therapy, Gait, Safety, Therapeutic Exercise, Transfers Treatment Duration: Nov 14, 2021 Frequency: 11 times per week Estimated Hrs Per Day: .25 hour per day Patient and/or Family Agrees t: Yes Safety Risks/Education Patient Education: Gait Training, Correct Positioning Teaching Recipient: Patient Teaching Methods: Discussion Response to Teaching: Return Demonstration Time/GCodes Time In: 1340 Time Out: 1403 Total Billed Treatment Time: 23 Total Billed Treatment 1, Ex 15min, GT 8min VALENTÍN DAVIS PTA Oct 09, 2021 14:25
[2021-10-09 15:47] VITALS: BP 108/56
[2021-10-09 20:00] VITALS: BP 112/55
[2021-10-09] MEDS: ATENOLOL 25 MG (TENORMIN) TAB PO SCH (20:39)
[2021-10-09] MEDS: AtorvaSTATin TABLET 10 MG TABLET PO SCH (20:40)
[2021-10-10] VITALS: BP 130/60
--- NOTE | 2021-10-10 03:54 | DISCHARGE SUMMARY ---
DATE OF SERVICE: DATE OF ADMISSION: 10/08/2021. DATE OF DISCHARGE: 10/10/2021. DIAGNOSES: 1. Left knee primary osteoarthritis. 2. Hypertension. 3. Vertigo. PROCEDURE: Left total knee arthroplasty. SUMMARY: The patient is a 76-year-old female, who underwent a left total knee arthroplasty on the day of admission and postoperatively, she did well. At the time of discharge, her wound was clean and dry. She had no calf tenderness. Negative Homans sign. She was tolerating diet well and tolerating pain with oral pain medication. CONDITION AT DISCHARGE: Good. DISCHARGE DIET: Regular. FOLLOWUP: Followup is in 3 weeks. DISCHARGE MEDICATIONS: Home medications including aspirin and Percocet as needed for pain. Job ID: [id number] DocumentID: [id number] Dictated Date: 10/09/2021 07:42:53 Procurement Director Date: 10/10/2021 03:54:28 Dictated By: JOSE CALLEJAS MD
[2021-10-10 04:00] VITALS: BP 124/60
[2021-10-10] MEDS: oxyCODONE/APAP 5/325MG (PERCOCET 5) TABLET PO PRN ×4 (04:07→12:03)
[2021-10-10] MEDS: MULTIVIT W/MINERALS TAB (THERAGRAN M) PO SCH (06:32)
[2021-10-10] MEDS ORDERED: morphine INJ 4 MG/ML 1 ML (VIAL/SYRINGE) IVP PRN (07:15)
--- NOTE | 2021-10-10 07:16 | Progress Note ---
Standard Progress Note Progress Notes/Assess & Plan Date Seen by a Provider: Oct 10, 2021 Time Seen by a Provider: 07:15 Progress/Assessment & Plan post op check no complaints radiographs--HW well positioned without fracture LLE--2 plus DP pulse with brisk cap refill intact DF and PF of toes and ankle sensation intact to light touch throughouot s/p LTKA mobilize as able Final Diagnosis no complaints Vital Signs Date Time Temp Pulse Resp B/P (MAP) Pulse Ox O2 Delivery O2 Flow Rate FiO2 10/10/21 04:00 37.7 70 20 124/60 (81) 93 Room Air 10/10/21 00:00 38.0 67 18 130/60 (83) 93 Room Air 10/09/21 20:45 Room Air 10/09/21 20:00 37.6 89 18 112/55 (74) 92 Room Air 10/09/21 18:18 18 10/09/21 15:47 37.1 62 18 108/56 (73) 92 Room Air 10/09/21 12:49 37.1 10/09/21 11:38 37.1 63 18 120/56 (77) 93 Room Air 10/09/21 09:00 Room Air 10/09/21 07:54 37.1 54 18 103/57 (72) 95 Room Air I & O 10/10/21 07:00 Intake Total 690 ml Output Total 775 ml Balance -85 ml Laboratory Tests Test 10/10/21 05:08 Range/Units Hemoglobin 10.0 L 11.5-16.0 g/dL Hematocrit 32 L 35-52 % LLE--incision clean and dry no calf tenderness s/p LTKA DC home after PT today JOSE CALLEJAS MD Oct 10, 2021 07:15
[2021-10-10 07:55] VITALS: BP 112/57
[2021-10-10] MEDS: ENOXAPARIN INJECTION 30 MG/0.3 ML SYR SC SCH (08:28)
[2021-10-10] MEDS: ASPIRIN E.C. 81 MG (ECOTRIN) TAB PO SCH (08:29)
[2021-10-10] MEDS: lisINopril 20 MG (PRINIVIL) TABLET PO SCH (08:29)
[2021-10-10] MEDS: SENNA W/DOCUSATE (SENOKOT S) TABLET PO SCH (08:29)
--- NOTE | 2021-10-10 09:29 | Physical Therapy Daily Note ---
PT Daily Note-Current Subjective Patient reports she is going home. Agrees to PT. Pain Numeric Pain Scale: 8 Location: Left Location Body Site: Knee Pain Description: Acute Mental Status Patient Orientation: Normal For Age Transfers SCALE: Activities may be completed with or without assistive devices. 1-Gporbrykgs-txsksmz completes the activity by him/herself with no assistance from a helper. 5-Set-up or Clean-up Assistance-helper sets up or cleans up; patient completes activity. [place] assists only prior to or following the activity. 4-Supervision or Touching Assistance-helper provides verbal cues and/or touching/steadying and/or contact guard assistance as patient completes activity. Assistance may be provided throughout the activity or intermittently. 3-Partial/Moderate Assistance-helper does LESS THAN HALF the effort. [place] lifts, holds or supports trunk or limbs, but provides less than half the effort. 2-Substantial/Maximal Assistance-helper does MORE THAN HALF the effort. [place] lifts or holds trunk or limbs and provides more than half the effort. 8-Tnxkjcaei-evqutc does ALL the effort. Patient does none of the effort to complete the activity. Or, the assistance of 2 or more helpers is required for the patient to complete the activity. If activity was not attempted, code reason: 7-Patient Refused. 9-Not Applicable-not attempted and the patient did not perform the activity before the current illness, exacerbation or injury. 10-Not Attempted due to Environmental Limitations-(lack of equipment, weather restraints, etc.). 88-Not Attempted due to Medical Conditions or Safety Concerns. Sit to Stand (QC): 4 Chair/Axu-lm-Joikz Xfer(QC): 4 Weight Bearing Right Lower Extremity: Right Full Weight Bearing Left Lower Extremity: Left Weight Bearing/Tolerated Gait Training Distance: 150' Walk 10 feet (QC): 4 Walk 50 ft with 2 Turns(QC): 4 Walk 150 ft (QC): 4 Gait Assistive Device: FWW slow, step to gait sequence with minimal weight bearing through left LE (VC's for weight bearing left LE with minimal compliance) Stair Training Stair Training: Handrails/: 1 handrail, uses walker #of Steps: 8 1 Step (curb) (QC): 4 4 Steps (QC): 4 12 Steps (QC): 7 Stairs: Pattern: Step to Exercises Supine Ex: Ankle pumps, Quad Set, Heel Slides, Straight leg raise Supine Reps: 12 (in recliner with bilateral LE elevated) Seated Therapy Exercises: Ankle pumps, Long arc quads Seated Reps: 15 Assessment Patient has increase c/o left knee pain on this date. Declined to perform 13 steps due to fatigue. Patient performed gait training with minimal weight bearing left LE due to pain. Education with patient on weight bearing and performing HEP issued by physician, PRN. Patient voices understanding. Patient to dismiss to home on this date. PT Skilled Nursing Goals Skilled Nursing Goals PT Surveying Teacher Goals Time Frame: Oct 16, 2021 Roll Left & Right (QC): 6 Lying-Sitting on Side/Bed(QC): 6 Sit to Stand (QC): 5 Chair/Wgo-zb-Ugvjl Xfer(QC): 5 Toilet Transfer (QC): 5 Does the Patient Walk: Yes Walk 10 feet (QC): 4 Walk 50ft with 2 Turns (QC): 4 Walk 150 ft (QC): 4 1 Step (curb) (QC): 3 4 Steps (QC): 3 12 Steps (QC): 3 PT Plan Treatment/Plan Treatment Plan: Discontinue PT Treatment Plan: Bed Mobility, Education, Functional Activity Chidi, Functional Strength, Group Therapy, Gait, Safety, Therapeutic Exercise, Transfers Treatment Duration: Nov 14, 2021 Frequency: 11 times per week Estimated Hrs Per Day: .25 hour per day Patient and/or Family Agrees t: Yes Time/GCodes Time In: 815 Time Out: 854 Total Billed Treatment Time: 39 Total Billed Treatment 1 visit FA 10 min EX 14 min GT 15 min MORIS BARRY PT Oct 10, 2021 09:29
[2021-10-10 11:27] VITALS: BP 137/62
== END 2021-10-10 12:39 | disposition home health service (06) | DRG 470 ==
LOC: 4TH 08:00 → SURG 08:01 → 4TH 12:10
PROVIDERS: ADMIT Orthopaedic Surgery; ATTEND Orthopaedic Surgery
PROC: 0SRD0J9 Replacement of Left Knee Joint with Synthetic Substitute, Cemented, Open Approach (ICD-10-PCS; principal; 2021-10-08 09:22)
DX: M17.12 Unilateral primary osteoarthritis, left knee (principal); I10 Essential (primary) hypertension; R42 Dizziness and giddiness; Z96.651 Presence of right artificial knee joint; Z82.61 Family history of arthritis; E78.5 Hyperlipidemia, unspecified
CPT/HCPCS: 36415; 73560; 85014; 85018; 86850; 86900; 86901; 87081